=== PATIENT | male | born 1985 | race Hispanic/Latino ===

== ENCOUNTER 2023-05-11 10:42 | Emergency (ER) | payer SELFPAY ==
--- NOTE | ~2023-05-11 | XR_ITS ---
Left Hand Technique: PA, oblique, and lateral views were obtained. Clinical History: Foreign body Findings: No acute fracture or dislocation is seen. Osseous alignment is anatomic. Joint spaces are p reserved. There is suggestion 8mm linear foreign body at the fourth interspace region, approximately the level of the fifth proximal phalanx. Impression: Suspect a 8 mm foreign body at the fourth interspace region, as detailed above. Correlate with physic al exam. Reviewed, dictated and finalized at location M. Impression: Suspect a 8 mm foreign body at the fourth interspace region, as detailed above. Correlate with physical exam.
[2023-05-11 10:48] VITALS: BP 127/83; PULSE 55; RESP 18; TEMP 36.2; O2SAT 100
--- NOTE | 2023-05-11 11:40 | PC.NURSE ---
Pt states he cleaned wound last night w/ peroxide and one PCN injection 04/29/23
--- NOTE | 2023-05-11 12:23 | ED.WOUNDLAC ---
HPI - Wound/Laceration General Chief Complaint: Wound/Laceration Stated Complaint: nail in left hand, not healing well Time Seen by Provider: 05/11/23 12:03 Source: patient and family Mode of arrival: ambulatory Limitations: no limitations History of Present Illness HPI narrative: Simba is a 38-year-old male patient presenting to the clinic today with complaints a puncture wound injury to the left hand. He reports last week he was using a nail gun and shot a nail into the left palm. He pulled the nail out. Area has become red, swollen, and is draining purulent discharge. He reports that he was given a penicillin shot however his symptoms are not improving. He is having difficulty making a fist with the hand due to pain and swelling. Is able to move all his fingers Related Data Allergies Allergy/AdvReac Type Severity Reaction Status Date / Time No Known Allergies Allergy Verified 05/11/23 10:44 Review of Systems Review of Systems: Pertinent positives per HPI. Patient denies any fever, chills, rash, headache, visual changes, dizziness, cough, runny nose, sore throat, shortness of breath, chest pain, palpitations, nausea, vomiting, diarrhea, constipation, abdominal pain, or any urinary issues. PMFSH Comments At the time of my signature, I reviewed and agree with the nursing past medical, surgical, social, and family history. There is no relevant family history pertinent to the patient complaint. Exam Narrative: General: Well-developed, well nourished, in no apparent distress Head: Normocephalic, atraumatic. Cardio: Regular rate and rhythm, s1 and s2 normal, no murmur appreciated. Resp: Clear to auscultation bilaterally, no rhonchi, rales, wheezing or rubs. Musculoskeletal: No deformity, redness and swelling noted to the mid palm just below the 4th finger-tender to palpation with yellow discharge coming from the puncture wound, unable to make a fist but is able to move he fingers, peripheral pulse strong, no edema, no cyanosis, normal gait and station Course Course Emergency Course: Portions of this record may have been created with voice recognition software. Vital Signs Vital signs: Vital Signs Temperature 36.2 C L 05/11/23 10:48 Pulse Rate 55 L 05/11/23 10:48 Respiratory Rate 18 05/11/23 10:48 Blood Pressure 127/83 05/11/23 10:48 Pulse Oximetry 100 05/11/23 10:48 Oxygen Delivery Room Air 05/11/23 10:48 Temperature 36.2 C L 05/11/23 10:48 Pulse Rate 55 L 05/11/23 10:48 Respiratory Rate 18 05/11/23 10:48 Blood Pressure 127/83 05/11/23 10:48 Pulse Oximetry 100 05/11/23 10:48 Oxygen Delivery Room Air 05/11/23 10:48 Vital signs reviewed MDM - Wound/Laceration MDM Narrative Medical decision making narrative: At the time of visit patient is resting on the ER stretcher. X-ray was performed and shows suspicious 8 mm possible foreign body in the soft tissue of the left hand-palm. Contacted Dr. Dinh- hand specialist and he will see patient in the office tomorrow. will update tetanus in the ER today and give prescription for Keflex. Supportive measures were also discussed with the patient he voiced understanding of the discharge instructions and agrees to treatment plan. Differential Diagnosis Differential diagnosis: Likely abscess and other ( Puncture wound, skin infection, retained foreign body in the soft tissue) Discharge Plan Discharge Clinical Impression: Foreign body (FB) in soft tissue Infected puncture wound of hand Qualifiers: Encounter type: initial encounter Laterality: left Qualified Code(s): S61.432A - Puncture wound without foreign body of left hand, initial encounter Patient Disposition: Home, Self-Care Condition: Stable Instructions: Antibiotic Form, Soft Tissue Foreign Body (ED), Puncture Wound (ED), Wound Infection (ED) Additional Instructions: Mantenga la herida limpia y seca Aplique richard compresa tibia a la herida d
[2023-05-11] MEDS: TETANUS,DIPHTHERIA,AC PERTUSSIS ADULT (0.5 ML) BOOSTRIX IM (12:57)
== END 2023-05-11 13:48 | disposition home or self-care (01) ==
PROVIDERS: Emergency Provider Nurse Practitioner Family
DX: S61.442A Puncture wound with foreign body of left hand, initial encounter (principal); Z23 Encounter for immunization; W29.4XXA Contact with nail gun, initial encounter
CPT/HCPCS: 73130; 90471; 90715; 99283